=== PATIENT | male | born 1950 | race Caucasian/White ===

== ENCOUNTER 2019-03-31 07:43 | Day surgery (SDC) | payer MEDICARE, BC ==
[~2019-03-31] VITALS: Ht 185.4 cm; Wt 110.4 kg
[~2019-03-31 07:43] MED LIST: AMOXICILLIN 8751 TAB PO; ASPIRIN 81M81 MG/TA2 PO; CIPRO HC OTIC S10 ML OT; FISH OIL CONCEN1 SG2 PO; HIGH BP; MOBIC 7.5MG7.5 MG PO; MULTIPLE VITAMI1 CAP PO; NORCO 325 MG-7.1 TAB PO; OXYCONTIN 10MG10 MG PO; PREDNISONE20 M1 PO; TOPROL XL 25MG25 MG PO
[2019-03-31 08:00] VITALS: BP 139/95; PULSE 61; TEMP 97.6
[2019-03-31] MEDS ORDERED: MOBIC15 MG PO (08:08)
[2019-03-31] MEDS ORDERED: PERCOCET 325 MG1 TA2 PO ×2 (08:08→10:19)
[2019-03-31] MEDS ORDERED: NORVASC 10MG10 MG PO (08:09)
[2019-03-31] MEDS ORDERED: TRIAMCINOLONE A15 G3 TP (08:09)
[2019-03-31] MEDS ORDERED: GERITOL COMPLET1 TA1 PO (08:09)
[2019-03-31] MEDS ORDERED: HCTZ 25MG TAB25 MG PO (08:10)
[2019-03-31 10:13] VITALS: BP 114/64; PULSE 66; TEMP 97.1
--- NOTE | 2019-03-31 10:13 | NUR ---
The patient arrived back to [facility] from the operating room at this time. The patient appears drowsy but arouses easily to his name. Post operative vital signs were started at this time. The patient's is at his bedside at this time. The patient agrees to try some ice water. The patient denies any pain or nausea at this time. The patient's dressing to his left upper chest appears clean, dry, and intact. Call light is within reach. Will continue to monitor the patient.
[2019-03-31 10:28] VITALS: BP 107/66; PULSE 64
--- NOTE | 2019-03-31 10:28 | NUR ---
The patient appears to be tolerating the water well. The patient agrees to try some chocolate ice cream at this time. Vital signs appear stable. remains at his bedside. Will continue to monitor the patient.
[2019-03-31 10:43] VITALS: BP 99/48; PULSE 62
--- NOTE | 2019-03-31 10:43 | NUR ---
The patient has finished his ice cream and appeared to tolerate it well. The patient denies wanting anything further to eat or drink at this time. Will continue to monitor the patient.
[2019-03-31 10:58] VITALS: BP 131/78; PULSE 72
--- NOTE | 2019-03-31 10:58 | NUR ---
The patient ambulated to the bathroom with the stand by assistance of one nurse and appeared to tolerate the activity well. The patient voided without difficulty.
--- NOTE | 2019-03-31 11:05 | NUR ---
Discharge instructions were reviewed with the patient and his at this time. They both verbalized understanding and have no questions for the nurse at this time. The patient's IV to his left hand was removed and a pressure dressing was applied to the site. The nurse instructed the patient to get dressed and notify the staff when he is ready to be escorted out.
--- NOTE | 2019-03-31 11:15 | NUR ---
The patient was escorted out via wheelchair to a private vehicle by HENRRY Smith. The patient's belongings and discharge paperwork were sent with her. The patient's is present to drive him home.
== END 2019-03-31 11:15 | disposition home or self-care (01) ==
LOC: SDCO 07:43
DX: C09.1 Malignant neoplasm of tonsillar pillar (anterior) (posterior) (principal); C77.0 Secondary and unspecified malignant neoplasm of lymph nodes of head, face and neck; I10 Essential (primary) hypertension; J30.1 Allergic rhinitis due to pollen; G89.29 Other chronic pain; Z79.82 Long term (current) use of aspirin; Z82.49 Family history of ischemic heart disease and other diseases of the circulatory system; Z80.9 Family history of malignant neoplasm, unspecified
CPT/HCPCS: C1788; J0690; J1885; J2250; J2405; J2704; J3010; J7120

== ENCOUNTER → 2019-04-09 | Outpatient (CLI) | payer MEDICARE, BC ==
[~2019-04-09] MED LIST changes: +GERITOL COMPLET1 TA1 PO; +HCTZ 25MG TAB25 MG PO; +MOBIC15 MG PO; +NORVASC 10MG10 MG PO; +PERCOCET 325 MG1 TA2 PO; +TRIAMCINOLONE A15 G3 TP
== END ==
LOC: COL.RAD 08:23
DX: C09.1 Malignant neoplasm of tonsillar pillar (anterior) (posterior) (principal)

== ENCOUNTER 2019-07-18 14:00 | Outpatient (RCR) | payer MEDICARE, BC | END 2019-11-02 | LOC: WSST | DX: C09.1 Malignant neoplasm of tonsillar pillar (anterior) (posterior) (principal) ==

== ENCOUNTER 2020-01-05 13:57 | Outpatient (RCR) | payer MEDICARE, BC | END 2020-03-21 | disposition home or self-care (01) | LOC: WSST | DX: R13.13 Dysphagia, pharyngeal phase (principal) ==

== ENCOUNTER 2022-06-01 13:37 | Emergency (ER) | payer MEDICARE, BC ==
[~2022-06-01] VITALS: Ht 182.9 cm; Wt 80.9 kg
[2022-06-01 14:08] VITALS: TEMP 98.1
[2022-06-01 16:25] VITALS: BP 168/99; PULSE 81
[2022-06-04] MEDS ORDERED: ROBAXIN 50500 MG/TAB PO (18:23)
== END 2022-06-01 16:27 | disposition home or self-care (01) ==
LOC: COL.ER 13:37
DX: M54.50 Low back pain, unspecified (principal); G89.29 Other chronic pain; Z79.1 Long term (current) use of non-steroidal anti-inflammatories (NSAID); Z28.310 Unvaccinated for COVID-19
CPT/HCPCS: J2270